=== PATIENT | female | born 1995 | race Hispanic/Latino ===

== ENCOUNTER 2017-06-07 23:47 | Emergency (ER) | payer BC, OTHER ==
--- NOTE | 2017-06-08 10:22 | RAD ---
CHEST 2 VIEWS: Date: 06/08/17 HISTORY: Cough. FINDINGS: No comparison. Cardiac silhouette and pulmonary vasculature are unremarkable. Mediastinum is midline. There is no co nfluent air space consolidation, pneumothorax, or pleural fluid evident. court recording monitor leads overli e the chest. IMPRESSION: No active cardiopulmonary abnormalities are demonstrated. POS: [facility]
== END 2017-06-08 00:51 | disposition home or self-care (01) ==
LOC: ERS 23:47
DX: J06.9 Acute upper respiratory infection, unspecified (principal)
CPT/HCPCS: 71046; 87804

== ENCOUNTER 2017-07-22 20:16 | Emergency (ER) | payer OTHER, SELFPAY ==
[2017-07-22] MEDS ORDERED: Ondansetron ODT 4 MG TAB ONE (21:08)
[2017-07-22] MEDS ORDERED: Acetaminophen 500 MG TAB ONE (21:28)
[2017-07-22] MEDS ORDERED: Ibuprofen 200 MG TAB ONE (21:42)
== END 2017-07-22 22:10 | disposition home or self-care (01) ==
LOC: ERS 20:16
DX: R11.2 Nausea with vomiting, unspecified (principal); R50.9 Fever, unspecified
CPT/HCPCS: 99283; Q0162